=== PATIENT | female | born 1970 | race Caucasian/White ===

== ENCOUNTER 2021-11-21 06:44 | Emergency (ER) | payer OTHER ==
[~2021-11-21] VITALS: Ht 165.1 cm; Wt 83.5 kg
[~2021-11-21 06:44] MED LIST: Ativan1 MG PO; BP MED
== END 2021-11-21 07:22 | disposition home or self-care (01) ==
LOC: ER 06:44
DX: Z48.02 Encounter for removal of sutures (principal); I10 Essential (primary) hypertension; F41.9 Anxiety disorder, unspecified
CPT/HCPCS: 99281